=== PATIENT | female | born 1945 | race Caucasian/White ===

== ENCOUNTER → 2016-09-27 | Outpatient (CLI) | payer OTHER ==
[~2016-09-27] MED LIST: ALENDRONATE SOD70 MG PO; ANASTROZOLE1 MG PO; ASPIRIN81 M2 PO; ATIVAN1 MG PO; CALCIUM + D SO1 EACH PO; CIPROFLOXACIN500 M1 PO; HYDROCHLOROTHIA25 M2 PO; LEVAQUIN 750 M750 MG PO; LEVOTHYROXIN0.075 MG PO; LIPITOR 20 MG T20 M1 PO; LISINOPRIL10 MG PO; MOBIC7.5 MG PO; NORCO 5-325 TA1 EACH PO; PREDNISONE 10 M10 M1 PO; SYMBICORT160 MCG/4. INH; ZOCOR80 MG PO
== END ==
LOC: RAD 11:07
DX: Z12.31 Encounter for screening mammogram for malignant neoplasm of breast (principal)